=== PATIENT | female | born 1970 | race Caucasian/White ===

== ENCOUNTER → 2022-01-10 10:32 | Outpatient (CLI) | payer BC, SELFPAY ==
--- NOTE | ~2022-01-10 | MM_ITS ---
EXAMINATION: MM screening karen BI w lance HISTORY: Screening TECHNIQUE: Craniocaudal and mediolateral oblique 3-D tomosynthesis images were obtained and synthetic 2-D images were generated. CAD analysis was submitted and interpreted. COMPARISON: Comparison to multiple prior studies sequentially, with oldest reviewed study dated 09/13. BREAST PARENCHYMAL COMPOSITION: There are scattered areas of fibroglandular density. FINDINGS: There is no evidence of suspicious mass, calcification, or architectural distortion to sugg est malignancy in either breast. There has been no suspicious interval change. IMPRESSION: 1. No mammographic evidence of malignancy. 2. Recommend routine screening mammography in one year. BI-RADS Category 1: Negative Reviewed, dictated and finalized at location A.
== END ==
PROVIDERS: PCP Family Medicine; Visit Provider Obstetrics & Gynecology
DX: Z12.31 Encounter for screening mammogram for malignant neoplasm of breast (principal)
CPT/HCPCS: 77063; 77067

== ENCOUNTER 2022-09-01 10:30 | Emergency (ER) | payer BC, SELFPAY ==
[2022-09-01 10:53] VITALS: BP 125/71; PULSE 100; RESP 18; TEMP 36.6; O2SAT 97
--- NOTE | 2022-09-01 11:10 | ED.GENADULT ---
HPI - General Adult General Chief complaint: Ear Stated complaint: lt ear pain Time Seen by Provider: 09/01/22 11:10 Source: patient Mode of arrival: ambulatory Limitations: no limitations History of Present Illness HPI narrative: 51-year-old female patient presents to the [facility] with complaints of left ear pain x1 month. Patient states that she feels like her ear is goopy but denies any discharge coming from the ear. Denies fevers, body aches or chills. Denies any coughing, chest pain or shortness of breath. Related Data Home Medications Medication Instructions Recorded Confirmed albuterol sulfate 90 mcg/actuation 2 puff inhalation PRN PRN 09/01/22 09/01/22 aerosol inhaler Shortness Of Breath alprazolam 0.5 mg tablet 0.5 mg PO DAILY 09/01/22 09/01/22 bupropion HCl 300 mg 24 hr tablet, 300 mg PO DAILY 09/01/22 09/01/22 extended release buspirone 30 mg tablet 30 mg PO DAILY 09/01/22 09/01/22 diclofenac sodium 1 % topical gel 4 g topical QID 09/01/22 09/01/22 montelukast 10 mg tablet 10 mg PO DAILY 09/01/22 09/01/22 olmesartan 20 mg tablet 20 mg PO DAILY 09/01/22 09/01/22 simvastatin 10 mg tablet 10 mg PO DAILY 09/01/22 09/01/22 sumatriptan succinate 100 mg tablet 100 mg PO DAILY 09/01/22 09/01/22 tobramycin 0.3 %-dexamethasone 0.1 1 drp RIGHT EYE Q1-4H 09/01/22 09/01/22 % eye drops,suspension tranexamic acid 650 mg tablet 650 mg PO DAILY 09/01/22 09/01/22 Allergies Allergy/AdvReac Type Severity Reaction Status Date / Time No Known Allergies Allergy Unknown Verified 09/01/22 10:56 Review of Systems Review of Systems: CONSTITUTIONAL: Denies fever, chills, or sweats. EYES: Denies visual changes, redness, or discharge. ENT: Denies rhinorrhea, congestion, sore throat, Positive left otalgia. CARDIOVASCULAR: Denies chest pain, palpitations, or edema. RESPIRATORY: Denies cough or dyspnea. GASTROINTESTINAL: Denies abdominal pain, nausea, vomiting, or diarrhea. GENITOURINARY: Denies dysuria or hematuria. SKIN: Denies rash or itching. MUSCULOSKELETAL: Denies back pain, joint pain, or myalgia. NEUROLOGIC: Denies headache, numbness, or weakness. PSYCHIATRIC: Denies anxiety or depression. [facility] Past Medical History Medical History (Updated 09/01/22 @ 11:18 by NADEEM Driver) No significant past medical history Comments At the time of my signature I agree with nursing past medical history, surgical, social, and family history. There is no relevant family history pertinent to the presenting complaint. Exam Narrative: GENERAL: Well-appearing, well-nourished, and in no acute distress. HEAD: Normocephalic, atraumatic. EYES: PERRLA and EOMI. ENT: Nares clear, no rhinorrhea or epistaxis. Mucous membranes moist. left canal does have some swelling and erythema noted. No obvious discharge noted at this time. NECK: Supple. No lymphadenopathy CHEST: Clear to auscultation. No respiratory distress. HEART: Regular rate and rhythm. No murmur heard. Normal peripheral pulses. ABDOMEN: Soft, nontender, nondistended, normal active bowel sounds. EXTREMITIES: Normal range of motion. No edema. SKIN: Warm, dry, no rash. NEURO: No focal deficits. Alert and oriented x3. Course Course Level of Care: Express Care Visit Vital Signs Vital signs: Vital Signs Temperature 36.6 C 09/01/22 10:53 Pulse Rate 100 09/01/22 10:53 Respiratory Rate 18 09/01/22 10:53 Blood Pressure 125/71 09/01/22 10:53 Pulse Oximetry 97 09/01/22 10:53 Oxygen Delivery Room Air 09/01/22 10:53 Temperature 36.6 C 09/01/22 10:53 Pulse Rate 100 09/01/22 10:53 Respiratory Rate 18 09/01/22 10:53 Blood Pressure 125/71 09/01/22 10:53 Pulse Oximetry 97 09/01/22 10:53 Oxygen Delivery Room Air 09/01/22 10:53 Vital signs reviewed Medical Decision Making MDM Narrative Medical decision making narrative: Plan of care for patient to discharge home with antibiotic ear drops for infection to the left ear canal. P
== END 2022-09-01 11:17 | disposition home or self-care (01) ==
PROVIDERS: Emergency Provider Nurse Practitioner Family; PCP Family Medicine
DX: H60.92 Unspecified otitis externa, left ear (principal); E78.00 Pure hypercholesterolemia, unspecified; I10 Essential (primary) hypertension; F41.9 Anxiety disorder, unspecified; F32.A Depression, unspecified
CPT/HCPCS: 99213; G0463

== ENCOUNTER 2023-10-17 07:16 | Outpatient (CLI) | payer BC, SELFPAY ==
--- NOTE | ~2023-10-17 | MM_ITS ---
EXAMINATION: MM screening karen BI w lance HISTORY: Screening TECHNIQUE: Craniocaudal and mediolateral oblique 3-D tomosynthesis images were obtained and synthetic 2-D images were generated. CAD analysis was submitted and interpreted. COMPARISON: Comparison to multiple prior studies sequentially, with oldest reviewed study dated 01/2016. BREAST PARENCHYMAL COMPOSITION: FINDINGS: The right breast is stable without evidence for malignancy. There is a new focal asymmetry laterally in the left breast on CC view. IMPRESSION: 1. New left breast asymmetry laterally on CC view. 2. Additional mammographic views and possible breast ultrasound are recommended. BI-RADS Category 0: Incomplete: Needs additional imaging evaluation. Reviewed, dictated and finalized at location A. IMPRESSION: 1. New left breast asymmetry laterally on CC view. 2. Additional mammographic views and possible breast ultrasound are recommended . BI-RADS Category 0: Incomplete: Needs additional imaging evaluation.
== END 2023-10-17 07:17 ==
LOC: MICIMG 07:17
PROVIDERS: PCP Family Medicine; Visit Provider Obstetrics & Gynecology
DX: Z12.31 Encounter for screening mammogram for malignant neoplasm of breast (principal); R92.8 Other abnormal and inconclusive findings on diagnostic imaging of breast
CPT/HCPCS: 77063; 77067

== ENCOUNTER 2023-12-04 08:13 | Outpatient (CLI) | payer BC, SELFPAY ==
--- NOTE | ~2023-12-04 | MM_ITS ---
EXAMINATION: MM diagnostic karen LT w lance HISTORY: New left breast mammographic asymmetry noted laterally on craniocaudal view of October 16 TECHNIQUE: Additional 3-D tomosynthesis images of the left breast were performed and synthetic 2-D im ages were generated. CAD analysis was submitted and interpreted. COMPARISON: November 05, 2018, January 10, 2022, October 17, 2023 bilateral screening mammogram examinations FINDINGS: The area of concern noted laterally on the screening CC view of 10/17/2023 is no longer evid ent compression view with better compression of this area. The appearance is unchanged since October. IMPRESSION: 1. BI-RADS 1: Negative 2. Recommendation: Routine mammographic screening Reviewed, dictated and finalized at location A.
== END 2023-12-04 08:14 ==
LOC: MICIMG 08:15
PROVIDERS: PCP Family Medicine; Visit Provider Obstetrics & Gynecology
DX: R92.8 Other abnormal and inconclusive findings on diagnostic imaging of breast (principal); N64.89 Other specified disorders of breast
CPT/HCPCS: 77061; 77065; G0279

== ENCOUNTER 2025-02-21 18:34 | Emergency (ER) | payer BC, SELFPAY ==
--- OUTSIDE RECORDS SUMMARY | 2025-02-21 18:39 | XMS_ITS | Clinical Summary ---
Author Organization [facility] Address [address] [place] [address] Care Team Providers Care Supervisor Pressing Department Name Role Phone Unavailable Primary Care Provider Unavailabl e Immunizations Immunization Administration Dates Next Due Covid-19, Mrna, Lnp-s, PF, 5 0 mcg/0.25 mL dose (Moderna) 06/01/2021 Social History Tobacco Use Types Packs/Day Years Used Date Smoking Tobacco: Never Assessed Comments Unknown Sex and Gender Information Value Date Recorded Sex Assigned at Not on file Legal Sex Female 11:36 AM CDT Gender Identity Not on file Sexual Orientation Not on file Plan of Treatment Health Maintenance Due Date Last Done Comments Hepatitis C Virus (HCV) Screening 1970 TdaP Immunization 1970 Hepatitis B Immunization (1 of 3 - 19+ 3-dose series) 10/21/1990 Pap Smear 10/21/1992 Cervical Cancer Screening (CCS) 10/21/2001 HPV/Cotest 10/21/2001 Cologuard 10/21/2016 Colonoscopy 10/21/2016 Colorectal Cancer Screening 10/21/2016 Immunochemical Fecal Occult Blood 10/21/2016 Pneumococcal Immunization (5 0+ years) (1 of 1 - PCV) 10/21/2021 Zoster Immunization (1 of 2) 10/21/2021 SARS-COV-2 Immunization (3 - 2023- season) 2024 06/01/2021, 10/03/2020 Influenza Immunization (#1) 2025 Respiratory Syncytial Virus (RSV) Immunization (Adult) (1 - 1-dose 75+ series) 10/21/2046 Human Papillomavirus (HPV) Immunization Aged Out No longer eligible b ased on patient's age to complete this topic Meningococcal Immunization (ACWY) Aged Out No longer eligible b ased on patient's age to complete this topic Rotavirus Immunization Aged Out No lo nger eligible based on patient's age to complete this topic
--- OUTSIDE RECORDS SUMMARY | 2025-02-21 18:39 | XMS_ITS | Referral Summary ---
Author Organization [facility] Address [address] [place] [address] Care Team Providers Care Wine Merchant Name Role Phone Jessica Luna MD Primary Care Provider [phone] Allergies Active Allergy Reactions Criticality Noted Date Comments Amlodipine Edema Medium 09/27/2020 Lisinopril Cough Low 09/12/2020 Medications montelukast (SINGULAIR) 10 mg tabletIndications:Acute non-recurrent maxillary sinusitis TAKE 1 TABLET BY MOUTH EVERY DAY AT NIGHT 30 tablet 1 022 Active albuterol HFA (PROVENTIL HFA,VENTOLIN HFA,PROAIR HFA) 90 mcg/actuation inhaler USE 2 INHALATIONS EVERY 6 HOURS NEEDED FOR WHEEZING 25.5 g 3 022 Active SUMAtriptan (IMITREX) 100 mg tabletIndications:Intra ctable migraine with status migrainosus, unspecified migraine type TAKE 1 TABLET NEEDED FOR MIGRAINE 27 tablet 8 022 Active vxvaeyfjpg-ooyjyatz-xnr moterol (Breztri Aerosphere) 160-9-4.8 mcg/actuation inhalerIndications:Acut e bronchitis due to other specified organisms Inhale 2 puffs 2 (two) times a day 10.7 g 024 Active levonorgestreL (MIRENA) IUD 1 each by intrauterine route once 05/2024 Active semaglutide (WEGOVY) 2.4 mg/0.75 mL auto-injectorIndication s:Class 2 severe obesity due to excess calories with serious comorbidity and body mass index (BMI) of 38.0 to 38.9 in adult (HCC) Inject 2.4 mg under the skin every 7 days 2 mL 3 025 Active ALPRAZolam (XANAX) 0.5 mg tabletIndications:Gener alized Anxiety Disorder Take 1 tablet (0.5 mg total) by mouth daily as needed for anxiety 30 tablet 025 Active olmesartan (BENICAR) 20 mg tabletIndications:Hyper tension, essential TAKE 1 TABLET DAILY 90 tablet 3 025 Active simvastatin (ZOCOR) 10 mg tabletIndications:Pure hypercholesterolemia TAKE 1 TABLET NIGHTLY 100 tablet 1 025 Active busPIRone (BUSPAR) 30 mg tabletIndications:Gener alized anxiety disorder TAKE 1 TABLET TWICE A DAY 180 tablet 1 025 Active buPROPion XL (WELLBUTRIN XL) 300 mg 24 hr tabletIndications:Gener alized anxiety disorder TAKE 1 TABLET DAILY 90 tablet 1 025 Active Active Problems Problem Noted Date Diagnosed Date Metabolic syndrome 04/22/2024 Assessment & Plan (05/27/2024 7:24 PM CDT): BMI Follow-up includes: nutrition counseling Start wegovy. Assessment & Plan (04/30/2024 10:18 AM CDT): Chronic Uncontrolled Start wegovy Acute bronchitis due to other specified organism s 10/16/2023 Obesity (BMI 30-39.9) 10/16/2023 Assessment & Plan (05/27/2024 7:25 PM CDT): BMI Follow-up includes: nutrition counseling Start wegovy. Assessment & Plan (04/30/2024 10:18 AM CDT): BMI Follow-up includes: nutrition counseling and exercise counseling Start jim. Neck pain 10/16/2023 Acute pain of left knee 05/30/2022 Subcutaneous mass of right upper extremity 03/27 Assessment & Plan (04/02/2022 6:32 AM CDT): New Refer to general surgeon Screening for colon cancer 11/01/2021 Acute non-recurrent maxillary sinusitis 11/02/19 22 Assessment & Plan (11/18/2021 10:40 AM CDT): New Order angelica stallworth Encounter for screening mamm ogram for malignant neoplasm of breast 03/29/2021 Class 2 severe obesity due t o excess calories with serious comorbidity and body mass index (BMI) of 38.0 to 38.9 in adult 11/29/2020 Assessment & Plan (03/29/2021 5:10 AM CDT): Stable Cont phentermine Assessment & Plan (01/01/2021 4:36 AM CDT): Improving Cont phentermine Assessment & Plan (11/29/2020 10:41 AM CDT): BMI Follow-up includes: nutrition counseling and exercise counseling Start phentermine . Bilateral lower extremity edema 09/27/2020 Assessment & Plan (09/27/2020 1:46 PM [employer]): Secondary to amlodipine Dc it and start hctz for few days to reduce swellig Left carpal tunnel syndrome 09/12/2020 Assessment & Plan (09/12/2020 3:25 PM [employer]): New Refer to ortho Uncontrolled hypertension 07/24/2020 Assessment & Plan (09/27/2020 1:45 PM [employer]): Uncontrolled since stopped the norvasc, because it has caused lower extremity edema Start edarbyclor Assessment & Plan (09/12/2020 3:25 PM [employer]): New Stopped the zestoretic because of cough Start amlodipine Assessment & Plan (07/31/2020 5:43 AM [employer]): Uncontrolled Change lisinopril to zestoretic Numbness and tingling in left hand 07/24/2020 Assessment & Plan (07/31/2020 5:42 AM [employer]): New Order EMG/NCS Pure hypercholesterolemia 02/19/2020 Assessment & Plan (05/27/2024 7:26 PM CDT): Chronic Stable Cont zocor Goal: TC<200, LDL<100, TG<150 Assessment & Plan (04/30/2024 10:18 AM CDT): Chronic Stable Cont zocor Goal: TC<200, LDL<100, TG<150 Assessment & Plan (10/16/2023 11:42 AM CDT): Increase zocor from 1/2 tab to 1 tab daily Assessment & Plan (05/01/2023 10:23 AM CDT): Chronic Stable Cont zocor Goal: TC<200, LDL<100, TG<150 Assessment & Plan (10/03/2022 8:59 AM [employer]): Slightly worsened Restart the fish oil and coq10 Cont zocor Goal: TC<200, LDL<100, TG<150 Assessment & Plan (04/02/2022 6:31 AM CDT): Uncontrolled Follow low chol diet Goal : TC<200, LDL<100 Assessment & Plan (11/18/2021 10:40 AM CDT): Uncontrolled Follow low chol diet Goal : TC<200, LDL<100 Assessment & Plan (03/29/2021 5:10 AM CDT): Uncontrolled Follow low chol diet Goal : TC<200, LDL<100 Assessment & Plan (10/25/2020 8:54 AM CDT): Uncontrolled Work on low choelsterol diet Assessment & Plan (07/31/2020 5:43 AM [employer]): Uncontrolled Follow low cholesterol diet Assessment & Plan (02/21/2020 8:41 AM CDT): New Start low cholesterol diet Recommended to start omega-3 Reactive airway disease 07/26/2019 Assessment & Plan (01/21/2020 4:35 AM CDT): Stable Cont proair PRN Assessment & Plan (08/31/2019 12:11 PM [employer]): Stable Cont proair PRN Generalized anxiety disorder 07/26/2019 Assessment & Plan (04/30/2024 10:17 AM CDT): Chronic Is Stable Cont buspar, wellbutrin, xanax Assessment & Plan (05/01/2023 10:24 AM CDT): Chronic Stable Cont buspar, wellbutrin, xanax Assessment & Plan (04/02/2022 6:32 AM CDT): Stable Cont xanax prn, wellbutrin, buspirone Assessment & Plan (11/18/2021 10:40 AM CDT): Stable Cont xanax prn, wellbutrin, buspirone Assessment & Plan (03/29/2021 5:11 AM CDT): Stable Cont xanax prn, wellbutrin, buspirone Assessment & Plan (01/01/2021 4:36 AM CDT): Stable Cont xanax prn Assessment & Plan (10/25/2020 8:54 AM CDT): Stable Cont buspar, wellbutrin Assessment & Plan (07/31/2020 5:43 AM [employer]): Stable Cont buspirone, xanax Assessment & Plan (02/21/2020 8:40 AM CDT): Stable Cont buspirone, xanax Assessment & Plan (01/21/2020 4:34 AM CDT): Stable Cont buspirone, xanax Assessment & Plan (08/31/2019 12:11 PM [employer]): Stable Cont wellbutrin, buspirone Intractable migraine with status migrainosus Assessment & Plan (04/30/2024 10:18 AM CDT): Chronic Is Stable Cont imitrex prn Assessment & Plan (05/01/2023 10:23 AM CDT): Chronic Stable Cont imitrex prn Assessment & Plan (04/02/2022 6:32 AM CDT): Stable Cont imitrex PRN Assessment & Plan (11/18/2021 10:41 AM CDT): Stable Cont imitrex PRN Assessment & Plan (09/12/2020 3:24 PM [employer]): Stable Cont imitrex prn Assessment & Plan (01/21/2020 4:35 AM CDT): Stable Cont imitrex prn Assessment & Plan (08/31/2019 12:11 PM [employer]): Stable Cont imitrex prn Hypertension, essential 07/26/2019 Assessment & Plan (04/30/2024 10:18 AM CDT): Chronic Is stable Cont benicar Goal: SBP<140, DBP<90 Assessment & Plan (05/01/2023 10:23 AM CDT): Chronic Stable Cont benicar Goal: SBP<140, DBP<90 Assessment & Plan (04/02/2022 6:31 AM CDT): Stable Cont benicar Goal: SBP<140, DBP<90 Assessment & Plan (11/18/2021 10:39 AM CDT): Stable Cont benicar Goal: SBP<140, DBP<90 Assessment & Plan (03/29/2021 5:10 AM CDT): Stable Cont benicar Assessment & Plan (01/01/2021 4:37 AM CDT): Stable Cont benicar Assessment & Plan (11/29/2020 10:41 AM CDT): Stable Cont benicar Assessment & Plan (11/07/2020 3:06 PM CDT): Has become hypotensive with edarbyclor 40/12.5 mg daily Because of problems with insurance coverage of edarbyclor, she would like to change to benicar 20mg daily Has already had side effects to : amlodipine, lisinopril Assessment & Plan (10/25/2020 8:54 AM CDT): Improved Cont edarbyclor Assessment & Plan (09/08/2020 2:10 PM [employer]): Better Cont zestoretic Assessment & Plan (02/21/2020 8:40 AM CDT): Improved Cont lisinopril Assessment & Plan (01/21/2020 4:35 AM CDT): Uncontrolled Start lisinopril Assessment & Plan (08/31/2019 12:11 PM [employer]): Monitor BP Immunizations Immunization Administration Dates Next Due Influenza, Unspecified 04/27/2023(Deferr ed: Patient Refused),05/30/2022(Deferred: Patient Refused),04/27/2021(Deferred: Patient Refused),05/16/2020(Deferred: Patient Refused),07/26/2019(Deferred: Patient Refused) Sentrinsic (J&J) SARS-CoV-2 Vaccination 08/16/2021, 10/03/2020 Social History Tobacco Use Types Packs/Day Years Used Date Smoking Tobacco: Never Cigarettes Smokeless Tobacco: Never Alcohol Use Standard Drinks/Week Comments Yes 0 (1 standard drink = 0.6 oz pur e alcohol) occ AUDIT-C Answer Date Recorded Q1: How often do you have a drink containing alc ohol? Monthly or less 11/04/2024 Q2: How many drinks containi ng alcohol do you have on a typical day when you are drinking? 1 or 2 11/04/2024 Frequency of Binge Drinking Not on file 10/26 PHQ-2 Answer Date Recorded PHQ-2 Total Score (If total score is 3 or more points, staff should administer the PHQ-9) 0 11/04/2024 Comments No Sex and Gender Information Value Date Recorded Sex Assigned at Not on file Legal Sex Female 8:25 PM [employer] Gender Identity Female 06/25/2020 8:20 PM [employer] Sexual Orientation Not on file Last Filed Vital Signs Vital Sign Reading Time Taken Comments Blood Pressure 128/82 11/04/2024 9:32 AM CDT Pulse 80 11/04/2024 9:32 AM CDT Temperature 36.8 C (98.3 F) 11/04/2024 9:32 AM CDT Respiratory Rate 18 11/04/2024 9:32 AM CDT Oxygen Saturation 99% 11/04/2024 9:32 AM CDT Inhaled Oxygen Concentration - - Weight 78.7 kg (173 lb 9.6 oz) 11/04/2024 9:32 A M CDT Height 154.9 cm (5' 1) 11/04/2024 9:32 AM CDT Body Mass Index 32.8 11/04/2024 9:32 AM CDT Plan of Treatment Not on file Procedures Procedure Name Priority Date/Time Associated Diagnosis Comments SCREENING MAMMOGRAM BILATERAL W DINO Schedule Routine, Read Routine (OP Routine) 01/10/2022 STOOL DNA COLOGUARD Routine 12/27/2021 1:27 PM CDT Screening for colon cancer THINPREP PAP WITH HPV Routine 08/01/2021 10:41 AM [employer] from Last 3 Months or Most Recently Relevant to Health Maintenance Results * Screening Mammogram Bilateral W Dino (01/10/2022) Anatomical Region Laterality Modality Breast Bilateral Mammography 01/10/2022 Impressions 01/10/2022 Mammogram Result Scanned Into Media us Historical Provider MD CHOW MAMMO PROCEDURES Annette l Result * Stool DNA - Cologuard (12/27/2021 1:27 PM CDT) Stool DNA - Cologuard Negative Negative [employer] (CLIA #:[id number]) Comment: NEGATIVE TEST RESULT. A negative Cologuard result indicates a low likelihood that a colorectal cancer (CRC) or advanced adenoma (adenomatous polyps with more advanced pre-malignant features) is present. The chance that a person with a negative Cologuard test has a colorectal cancer is less than 1 in 1500 (negative predictive value >99.9%) or has an advanced adenoma is less than 5.3% (negative predictive value 94.7%). These data are based on a prospective cross-sectional study of 10,000 individuals at average risk for colorectal cancer who were screened with both Cologuard and colonoscopy. (Kay Araiza. et al, N Engl J Med 2014;370(14):5724-7193) The normal value (reference range) for this assay is negative. COLOGUARD RE-SCREENING RECOMMENDATION: Periodic colorectal cancer screening is an important part of preventive healthcare for asymptomatic individuals at average risk for colorectal cancer. Following a negative Cologuard result, the [place] [employer] and U.S. Multi-Society Task Force screening guidelines recommend a Cologuard re-screening interval of 3 years. References: [place] [employer] Guideline for Colorectal Cancer Screening: https://www.cancer.org/cancer/tfjqg-ezslfu-pgfkwt/ibvifrmfv-wubuubaww-pgpoawk/ac s-rec ommendations.html.; Dwayne ORTEGA, Lucinda RESENDEZ, Zain FALCON, Colorectal Cancer Screening: Recommendations for Physicians and Patients from the U.S. Multi-Society Task Force on Colorectal Cancer Screening , Am J Gastroenterology 2017; 112:3603-6757. TEST DESCRIPTION: Composite algorithmic analysis of stool DNA-biomarkers with hemoglobin immunoassay. Quantitative values of individual biomarkers are not reportable and are not associated with individual biomarker result reference ranges. Cologuard is intended for colorectal cancer screening of adults of either sex, 45 years or older, who are at average-risk for colorectal cancer (CRC). Cologuard has been approved for use by the U.S. FDA. The performance of Cologuard was established in a cross sectional study of average-risk adults aged 50-84. Cologuard performance in patients ages 45 to 49 years was estimated by sub-group analysis of near-age groups. Colonoscopies performed for a positive result may find as the most clinically significant lesion: colorectal cancer [4.0%], advanced adenoma (including sessile serrated polyps greater than or equal to 1cm diameter) [20%] or non- advanced adenoma [31%]; or no colorectal neoplasia [45%]. These estimates are derived from a prospective cross-sectional screening study of 10,000 individuals at average risk for colorectal cancer who were screened with both Cologuard and colonoscopy. (Kay Good et al, N Engl J Med 2014;370(14):1138-2713.) Cologuard may produce a false negative or false positive result (no colorectal cancer or precancerous polyp present at colonoscopy follow up). A negative Cologuard test result does not guarantee the absence of CRC or advanced adenoma (pre-cancer). The current Cologuard screening interval is every 3 years. ([place] [employer] and U.S. Multi-Society Task Force). Cologuard performance data in a 10,000 patient pivotal study using colonoscopy as the reference method can be accessed at the following location: www.[employer]/results. Additional description of the Cologuard test process, warnings and precautions can be found at [email or web address].[email or web address]. Stool 12/27/2021 1:27 PM CDT 12/28/2021 6:29 PM CDT us Jessica Luna MD LAB BODY FLUIDS AND STOOL S ORDERABLES Final Result [facility] (CLIA #:[id number]) [address] [place] [address] * ThinPrep Pap with HPV (08/01/2021 10:41 AM [employer]) Pap test 08/01/2021 10:4 1 AM [employer] 08/02/2021 10:41 AM [employer] Narrative 08/06/2021 2:36 PM [employer] [facility] Department of Pathology [address] [place] [address] Final Report with Addendum Note to Patients: This report may contain a detailed description of human tissue sent by a health care provider to the laboratory for pathologic evaluation. The content of this report is essential for diagnosis and may provide important critical findings. This information may be unfamiliar to patients to review without a medical professional present. It is advised that the patient review this report in the presence of a health care provider who can answer questions and explain the details. Patient Name: JUANIS CAMPBELL Address: [address] [place] [address] [place] [address] Gender: F : 1970 (Age: 50) Service: Laboratory Location: [facility] #: [id number] Patient Type: [facility] SPECIMEN Taken: 08/01/2021 Received: 08/02/2021 Accessioned:: 08/03/2021 Reported: 08/06/2021 Physician(s): Damien Ramos M.D. [facility] Diagnosis: Source of Specimen: Imaged Thinprep Pap Test plus HPV - Cuff Presser Cytologic Material Specimen Adequacy: - Satisfactory for evaluation; endocervical/transformation zone component present General Category: - Negative for intraepithelial lesion or malignancy Interpretation/Results: - Numerous RBC's TRISHA Richards(ASCP) Report Electronically Reviewed and Signed Out By SAVANAH RichardsASCP) 08/06/2021 14:36:46 Addenda: HPV Test Interpretation NEGATIVE for types 16, 18, 31, 33, 35, 39, 45, 51, 52, 56, 58, 59, 66 and 68. Test performed utilizing Gen-Probe Aptima assay. TRISHA Ricahrds(ASCP) Report Electronically Reviewed and Signed Out By TRISHA Richards(ASCP) 08/03/2021 14:18:01 Specimen(s) Received: A: Imaged Thinprep Pap Test plus HPV - Cuff Presser Cytologic Material Clinical History: Last Menstrual Period: 07/11/21 Menstrual History: Clinical History: WWE The Pap test is a screening test used to aid in the detection of cervical cancer and its precursors. It should not be the sole means by which malignant and premalignant lesions are diagnosed. Both false negative and false positive results may occur. It also has poor sensitivity for the detection of endometrial lesions and should not be used to evaluate suspected endometrial abnormalities. For these reasons it is most important to obtain Pap tests at regular intervals. The performance characteristics of some immunohistochemical stains, fluorescence in-situ hybridization tests and immunophenotyping by flow cytometry cited in this report (if any) were determined by the Surgical Pathology Department at [facility] as part of an ongoing quality supervisor program and in compliance with federally mandated regulations drawn from the Clinical Laboratory Improvement Act of 1988 (CLIA '88). Some of these tests rely on the use of analyte specific reagents and are subject to specific labeling requirements by the US Food and Drug Administration. Such diagnostic tests may only be performed in a facility that is certified by the Department of Health and Human Services as a high complexity laboratory under CLIA '88. The FDA has determined that such clearance or approval is not necessary. This test is used for clinical purposes. It should not be regarded as investigational or for research. Nevertheless, federal rules concerning the medical use of analyte specific reagents require that the following disclaimer be attached to the report: This test was developed and its performance characteristics determined by the Surgical Pathology Department [facility]. It has not been cleared or approved by the U. S. Food and Drug Administration. Damien Ramos MD LAB CYTOLOGY ORDERABLES Final Result from Last 3 Months or Most Recently Relevant to Health Maintenance Insurance [employer] Care Teams Wine Merchant Relationship Specialty Start Date End Date Jessica Luna MD PCP - General Family Medicine 07/05/19
--- OUTSIDE RECORDS SUMMARY | 2025-02-21 18:39 | XMS_ITS | Clinical Summary ---
Author Organization [facility] at the [facility] Address [address] [place] [address] Care Team Providers Care Greens Or Grounds Superintendent Name Role Phone Jessica Luna MD Primary Care Provider [phone] Allergies Active Allergy Reactions Criticality Noted Date [...] FOR MIGRAINE 27 tablet 8 022 Active qpzqckyfnq-aezqjsqu-zbs moterol (Breztri Aerosphere) 160-9-4.8 mcg/actuation inhalerIndications:Acut e [...] 09/27/2020 Assessment & Plan (09/27/2020 1:46 PM FIELD WORKER): Secondary to amlodipine Dc it and start hctz for few days to reduce swellig Left carpal tunnel syndrome 09/12/2020 Assessment & Plan (09/12/2020 3:25 PM FIELD WORKER): New Refer to ortho Uncontrolled hypertension 07/24/2020 Assessment & Plan (09/27/2020 1:45 PM FIELD WORKER): Uncontrolled since stopped the norvasc, because it has caused lower extremity edema Start edarbyclor Assessment & Plan (09/12/2020 3:25 PM FIELD WORKER): New Stopped the zestoretic because of cough Start amlodipine Assessment & Plan (07/31/2020 5:43 AM FIELD WORKER): Uncontrolled Change lisinopril to zestoretic Numbness and tingling in left hand 07/24/2020 Assessment & Plan (07/31/2020 5:42 AM FIELD WORKER): New Order EMG/NCS Pure hypercholesterolemia 02/19/2020 Assessment [...] TG<150 Assessment & Plan (10/03/2022 8:59 AM FIELD WORKER): Slightly worsened Restart the fish oil and [...] diet Assessment & Plan (07/31/2020 5:43 AM FIELD WORKER): Uncontrolled Follow low cholesterol diet Assessment & Plan (02/21/2020 8:41 AM CDT): New Start low cholesterol diet Recommended to start omega-3 Reactive airway disease 07/26/2019 Assessment & Plan (01/21/2020 4:35 AM CDT): Stable Cont proair PRN Assessment & Plan (08/31/2019 12:11 PM FIELD WORKER): Stable Cont proair PRN Generalized anxiety disorder [...] wellbutrin Assessment & Plan (07/31/2020 5:43 AM FIELD WORKER): Stable Cont buspirone, xanax Assessment & Plan (02/21/2020 8:40 AM CDT): Stable Cont buspirone, xanax Assessment & Plan (01/21/2020 4:34 AM CDT): Stable Cont buspirone, xanax Assessment & Plan (08/31/2019 12:11 PM FIELD WORKER): Stable Cont wellbutrin, buspirone Intractable migraine with status migrainosus Assessment & Plan (04/30/2024 10:18 AM CDT): Chronic Is Stable Cont imitrex prn Assessment & Plan (05/01/2023 10:23 AM CDT): Chronic Stable Cont imitrex prn Assessment & Plan (04/02/2022 6:32 AM CDT): Stable Cont imitrex PRN Assessment & Plan (11/18/2021 10:41 AM CDT): Stable Cont imitrex PRN Assessment & Plan (09/12/2020 3:24 PM FIELD WORKER): Stable Cont imitrex prn Assessment & Plan (01/21/2020 4:35 AM CDT): Stable Cont imitrex prn Assessment & Plan (08/31/2019 12:11 PM FIELD WORKER): Stable Cont imitrex prn Hypertension, essential 07/26/2019 [...] edarbyclor Assessment & Plan (09/08/2020 2:10 PM FIELD WORKER): Better Cont zestoretic Assessment & Plan (02/21/2020 8:40 AM CDT): Improved Cont lisinopril Assessment & Plan (01/21/2020 4:35 AM CDT): Uncontrolled Start lisinopril Assessment & Plan (08/31/2019 12:11 PM FIELD WORKER): Monitor BP Immunizations Immunization Administration Dates Next Due Influenza, Unspecified 04/27/2023(Deferr ed: Patient Refused),05/30/2022(Deferred: Patient Refused),04/27/2021(Deferred: Patient Refused),05/16/2020(Deferred: Patient Refused),07/26/2019(Deferred: Patient Refused) Genapsys (J&J) SARS-CoV-2 Vaccination 08/16/2021, 10/03/2020 Surgical History Surgery Date Site/Laterality Comments SECTION x2 CARPAL TUNNEL RELEASE 10/26/2020 Left CARPAL TUNNEL RELEASE 10/26/2020 Left LASIK Remove floater Medical History Medical History Date Comments Anxiety Hypertension Arthritis Asthma Depression Migraines menorrhagia Fibroid uterus Family History Medical History Relation Name Comments Cancer Father Royce Leukemia Father Royce Cancer Mother Earlene Uterine cancer Mother Earlene Heart attack Mother's Brother 1 Karson Heart attack Mother's Brother 2 Karson Allergy (severe) Son 1 Radha Asthma Son 1 Radha Nephrolithiasis Son 1 Radha defects Son 2 Macho Breast cancer Neg Hx Ovarian cancer Neg Hx Relation Name Status Comments Father Royce Mother Earlene Alive Mother's Brother 1 Karson Mother's Brother 2 Karson Alive Son 1 Radha Alive Son 2 Macho Alive Social History Tobacco Use Types Packs/Day Years [...] on file Legal Sex Female 8:25 PM FIELD WORKER Gender Identity Female 06/25/2020 8:20 PM FIELD WORKER Sexual Orientation Not on file Obstetrics History Para Term AB IAB SAB Ectopic Multiple Livin g Live Births 2 2 2 0 0 0 0 0 0 2 2 Date Outcome GA Total Labor Labor/2nd/3rd Weight Sex Type Anes PTL Vanessa A1 A5 Name Clin Term Term Comments Last Filed Vital Signs Vital Sign Reading [...] 11/04/2024 9:32 AM CDT Plan of Treatment Health Maintenance Due Date Last Done Comments Hepatitis C Screening 1970 DTaP/Tdap/Td Vaccine (1 - Tdap) 10/21/1982 Hepatitis B Screening 10/21/1989 Zoster Vaccine (1 of 2) 10/21/2021 Cervical Cancer Screening 08/01/2022 08/01/2021 Covid-19 Vaccine ( season) 2024 08/16/2021, 06/08/2021, 06/01/2021, Additional history exists Breast Cancer Screening-Mammogram 12/03/2024 12/04/2023, 01/10/2022 Colon Cancer Screening-DNA Stool 12/27/2024 12/27/2021 Depression Screening 11/04/2025 11/04/2024, 10/16/2023, 05/30/2022, Additional history exists Regular Well Visit/Exam 18-64 11/04/2025 11/04/2024, 12/10/2022, 08/01/2021 Influenza Vaccine Discontinued Pneumococcal vaccine <65 Aged Out No longer eligible based on patient's age to complete this topic Procedures Procedure Name Priority Date/Time Associated Diagnosis Comments SCREENING MAMMOGRAM BILATERAL W DINO Schedule Routine, Read Routine (OP Routine) 01/10/2022 STOOL DNA COLOGUARD Routine 12/27/2021 1:27 PM CDT Screening for colon cancer THINPREP PAP WITH HPV Routine 08/01/2021 10:41 AM FIELD WORKER from Last 3 Months or Most Recently Relevant to Health Maintenance Results * Screening Mammogram Bilateral W Dino (01/10/2022) Anatomical Region Laterality Modality Breast Bilateral Mammography 01/10/2022 Impressions 01/10/2022 Mammogram Result Scanned Into Media us Historical Provider MD CHOW MAMMO PROCEDURES Annette l Result * Stool DNA - Cologuard (12/27/2021 1:27 PM CDT) Stool DNA - Cologuard Negative Negative [facility] (CLIA #:[id number]) Comment: NEGATIVE TEST RESULT. A negative Cologuard [...] Araiza. et al, N Engl J Med 2014;370(14):9027-2906) The normal value (reference range) for this assay is negative. COLOGUARD RE-SCREENING RECOMMENDATION: Periodic colorectal cancer screening is an important part of preventive healthcare for asymptomatic individuals at average risk for colorectal cancer. Following a negative Cologuard result, the [place] Cancer Society and U.S. Multi-Society Task Force screening guidelines recommend a Cologuard re-screening interval of 3 years. References: [place] [employer] Guideline for Colorectal Cancer Screening: https://www.cancer.org/cancer/xveoo-kdwepe-pihzqr/tkxyqwiew-lowkzltce-ypccfor/ac s-rec ommendations.html.; Dwayne DK, Lucinda CR, Zain ChristensenK, Colorectal Cancer Screening: Recommendations for Physicians and Patients from the U.S. Multi-Society Task Force on Colorectal Cancer Screening , Am J Gastroenterology 2017; 112:1296-6494. TEST DESCRIPTION: Composite algorithmic analysis of stool [...] Good et al, N Engl J Med 2014;370(14):0840-2200.) Cologuard may produce a false negative or false positive result (no colorectal cancer or precancerous polyp present at colonoscopy follow up). A negative Cologuard test result does not guarantee the absence of CRC or advanced adenoma (pre-cancer). The current Cologuard screening interval is every 3 years. ([place] Cancer Society and U.S. Multi-Society Task Force). Cologuard performance data in a 10,000 patient pivotal study using colonoscopy as the reference method can be accessed at the following location: www.[employer]/results. Additional description of the Cologuard test process, warnings and precautions can be found at www.[employer].com. Stool 12/27/2021 1:27 PM CDT 12/28/2021 6:29 PM CDT Jessica Luna MD LAB BODY FLUIDS AND STOOL S ORDERABLES Final Result [facility] (CLIA #:[id number]) [address] [place] [address] * ThinPrep Pap with HPV (08/01/2021 10:41 AM FIELD WORKER) Pap test 08/01/2021 10:4 1 AM FIELD WORKER 08/02/2021 10:41 AM FIELD WORKER Narrative 08/06/2021 2:36 PM FIELD WORKER [facility] Department of Pathology [address] [place] [address] Final Report with Addendum Note to Patients: [...] the details. Patient Name: JUANIS CAMPBELL Address: [address] [place] [address] Gender: F : 1970 (Age: 50) Service: Laboratory Location: N : [id number] [facility] #: [id number] Patient Type: [facility] SPECIMEN Taken: 08/01/2021 Received: 08/02/2021 Accessioned:: 08/03/2021 Reported: 08/06/2021 Physician(s): Damien Ramos M.D. [facility] Diagnosis: Source of Specimen: Imaged Thinprep Pap Test plus HPV - Custom Home Installer Cytologic Material Specimen Adequacy: - Satisfactory for evaluation; endocervical/transformation zone component present General Category: - Negative for intraepithelial lesion or malignancy Interpretation/Results: - Numerous RBC's TRISHA Richards(ASCP) Report Electronically Reviewed and Signed Out By TRISHA Richards(ASCP) 08/06/2021 14:36:46 Addenda: HPV Test Interpretation NEGATIVE for types 16, 18, 31, 33, 35, 39, 45, 51, 52, 56, 58, 59, 66 and 68. Test performed utilizing Gen-Probe Aptima assay. TRISHA Richards(ASCP) Report Electronically Reviewed and Signed Out By TRISHA Richards(ASCP) 08/03/2021 14:18:01 Specimen(s) Received: A: Imaged Thinprep Pap Test plus HPV - Custom Home Installer Cytologic Material Clinical History: Last Menstrual Period: [...] determined by the Surgical Pathology Department at [facility] as part of an ongoing rn clinical quality program and in compliance with federally mandated [...] characteristics determined by the Surgical Pathology Department [facility]. It has not been cleared or approved by the U. S. Food and Drug Administration. Damien Ramos MD LAB CYTOLOGY ORDERABLES Final Result from Last 3 Months or Most Recently Relevant to Health Maintenance Insurance Liquid OOS Care Teams Greens Or Grounds Superintendent Relationship Specialty Start Date End Date Jessica Luna MD PCP - General Family Medicine 07/05/19
--- OUTSIDE RECORDS SUMMARY | 2025-02-21 18:39 | XMS_ITS | Continuity of Care Document ---
Author Organization [facility] Address [address] [place] [address] Phone Care Team Providers Care Assembler Flexible Leads Name Role Phone Carrillo Kenyon Unavailable Unavailable Procedures Procedure Date Therapeutic Activities Neuromuscular Re-Ed Therapeutic Exercise Hot or Cold Pack Therapeutic Activities Neuromuscular Re-Ed Therapeutic Exercise Hot or Cold Pack Therapeutic Activities Neuromuscular Re-Ed Therapeutic Exercise Therapeutic Activities Neuromuscular Re-Ed Therapeutic Exercise Hot or Cold Pack Electrical Stimulation Therapeutic Activities Neuromuscular Re-Ed Therapeutic Exercise Hot or Cold Pack Electrical Stimulation Therapeutic Activities Neuromuscular Re-Ed Therapeutic Exercise Hot or Cold Pack Therapeutic Activities Neuromuscular Re-Ed Therapeutic Exercise Hot or Cold Pack Therapeutic Activities Neuromuscular Re-Ed Therapeutic Exercise Hot or Cold Pack Therapeutic Activities Neuromuscular Re-Ed Therapeutic Exercise Therapeutic Activities Neuromuscular Re-Ed Therapeutic Exercise PT Evaluation Moderate Complexity Therapeutic Exercise Neuromuscular Re-Ed Advance Directives Directive Yes / No Effective Date File Name No Information Encounters Encounter Description Practice Location Reason(s) For Visit Diagnoses Date Provider Providers Copied on Encounter [facility] [address], [id number], tel:[phone] [place] No Information 6 3 Muehl Carrillo. [address] [facility], [facility] [address] [place] [address], . tel: [phone] [facility] [address] [place] [address], [id number], tel:[phone] [place] No Information 3 Muehl Carrillo. [address] [place] [address], [facility] [address] [place] [address], . tel: [phone] Referring Provider: Jessica Brown, [address] [place] [address] [place] [address], [address]. tel:[phone], [id number], tel:[phone] [place] No Information 2 Muehl Carrillo. [address] [place] [address], [facility] [address], [place], [facility], . tel: [phone] Referring Provider: Jessica Brown, [address] [place] [address] [place] [address], [address]. tel:[phone], [id number], tel:[phone] [place] No Information 0- 2 Muehl Carrillo. [address] [place] [address], [facility] [address], [place], [facility], . tel: [phone] Referring Provider: Jessica Brown, [address] [place] [address] [address], [place], [address]. tel:[phone], [id number], tel:[phone] [place] No Information Dec-1 5-202 2 Muehl Carrillo. [address] [place] [address], [address], [place], [facility], . tel: [phone] Referring Provider: Jessica Brown, [address] [place] [address] [address], [place], [address]. tel:[phone], [id number], tel:[phone] [place] No Information Dec-1 3-202 2 Muehl Carrillo. [address] [place] [address], [facility] [address], [place], [facility], . tel: [phone] Referring Provider: Jessica Brown, [address] [place] [address] [address], [place], [address]. tel:[phone], [id number], tel:[phone] [place] No Information Dec-0 8-202 2 Muehl Carrillo. [address] [place] [address], [address], [place], [facility], . tel: [phone] Referring Provider: Jessica Brown, [address] [place] [address] [address], [place], [address]. tel:[phone], [id number], tel:[phone] [place] No Information Dec-0 6-202 2 Muehl Carrillo. [address] [place] [address], [address], [place], [facility], . tel: [phone] Referring Provider: Jessica Brown, [address] [place] [address] [address], [place], [address]. tel:[phone], [id number], tel:[phone] [place] No Information 2 Muehl Carrillo. [address] [place] [address], [facility] [address], [place], [facility], . tel: [phone] Referring Provider: Jessica Brown, [address] [place] [address] [address], [place], [address]. tel:[phone], [id number], tel:[phone] [place] No Information 2 Muehl Carrillo. [address] [place] [address], [facility] [address], [place], [facility], . tel: [phone] Referring Provider: Jessica Brown, [address] [place] [address] [place] [address], [address]. tel:[phone], [id number], tel:[phone] [place] No Information 2 Muehl Carrillo. [address] [place] [address], [address], [place], [facility], . tel: [phone] Referring Provider: Jessica Brown, [address] [place] [address] [address], [place], [address]. tel:[phone], [id number], tel:[phone] [place] No Information 2 Muehl Carrillo. [address] [place] [address], [address], [place], [facility], . tel: [phone] Referring Provider: Jessica Brown, [address] [place] [address] [address], [place], [address]. tel:[phone] Family History Family Member Type Diagnosis Age At Onset No Information Payers Payer name Insurance type Covered republican ID Authoramor lopez(s) [facility] [id number] Social History Type Description Quantity Date Captured Comments Sex Female Smoking Status No Information Chief Complaint And Reason For Visit No Information Reason For Referral Reason For Referral No Information History Of Present Illness Encounter Date Complaint History Of Prese nt Illness No Information Functional Status Date Functional Assessmen t No Information Instructions Date Instruction Additional Infor mation Prescribed activity/exercise edu cation Related to Overweight Dietary needs education Related to Overweight Assessments Type Assessment Date No Information Patient Care Teams Name Effective Dates (start - stop) Status Members No Information
--- OUTSIDE RECORDS SUMMARY | 2025-02-21 18:39 | XMS_ITS | Clinical Summary ---
Author Organization [facility] Address [facility] [place] [address] Care Team Providers Care Waiver Analyst Name Role Phone Unavailable Primary Care Provider Unavailabl e Social History Tobacco Use Types Packs/Day Years Used Date Smoking Tobacco: Never Assessed Comments Unknown Sex and Gender Information Value Date Recorded Sex Assigned at Not on file Legal Sex Female 5:57 PM CDT Gender Identity Not on file Sexual Orientation Not on file Plan of Treatment Health Maintenance Due Date Last Done Comments Colorectal Cancer Screening Colonoscopy (10 Years) 1970 Annual Physical 10/21/1974 Hepatitis C 10/21/1989 DTaP, Tdap and Td Vaccines (1 - Tdap) 10/21/1990 Hepatitis B Vaccines (1 of 3 - 19+ 3-dose series) 10/21/1990 Mammogram Screening 11/05/2020 11/05/2018, 02/29/2016, 02/01/2016, Additional history exists Pneumococcal Vaccine: 50+ Years (1 of 1 - PCV) 10/21/2021 Zoster Vaccines (1 of 2) 10/21/2021 Cervical Cancer Screening Pap with HPV Testing (Age 30 to 64) Every 5 Years 03/17/2022 03/17/2017, 01/01/2016, 09/15/2014 Cervical Cancer Screening Pap Smear (Age 30 to 64) Every 3 Years 09/19/2022 09/19/2019, 06/10/2013, 02/07/2011, Additional history exists Cervical Cancer Screening with HPV 09/19/2022 COVID-19 Vaccine ( season) 2024 Meningococcal B Vaccine Aged Out No l onger eligible based on patient's age to complete this topic Meningococcal Vaccine Aged Out No brandon lawanda eligible based on patient's age to complete this topic RSV Immunizations Under 20 Months Aged Out No longer eligible based on patient's age to complete this topic Procedures Procedure Name Priority Date/Time Associated Diagnosis Comments OUTSIDE CYTOPATH CERV/VAG INTERPRET (PAP) (SCAN ORDER) 09/19/2019 MAMMOGRAM GENERIC (SCAN ORDER) 11/05/2018 OUTSIDE CYTOPATH CERV/VAG INTERPRET (PAP) 03/17/2017 from Last 3 Months or Most Recently Relevant to Health Maintenance Results * OUTSIDE CYTOPATH CERV/VAG INTERPRET (PAP) (09/19/2019) 09/19/2019 Narrative 09/19/2019 Ordered by an unspecified provider. us Documents Scanned SCANNING Final Result * MAMMOGRAM GENERIC (11/05/2018) Anatomical Region Laterality Modality Other 11/05/2018 Narrative 11/05/2018 Ordered by an unspecified provider. us Documents Scanned SCANNING Final Result * OUTSIDE CYTOPATH VAG/CERV PAP WITH HPV (03/17/2017) 03/17/2017 Narrative 03/17/2017 Ordered by an unspecified provider. us Documents Scanned SCANNING Final Result from Last 3 Months or Most Recently Relevant to Health Maintenance
--- OUTSIDE RECORDS SUMMARY | 2025-02-21 18:42 | XMS_ITS | Continuity of Care Document ---
Author Organization [facility] [place] Address [address] [facility] [address] [place] [address] Phone Care Team Providers Care Junior Account Manager Name Role Phone Carrillo Kenyon Unavailable Unavailable [...] Re-Ed Therapeutic Exercise PT Evaluation Moderate Complexity Neuromuscular Re-Ed Therapeutic Exercise Advance Directives Directive Yes / No Effective Date File Name No Information Encounters Encounter Description Practice Location Reason(s) For Visit Diagnoses Date Provider Providers Copied on Encounter [facility] [address], [id number], tel:[phone] [place] No Information 6 [address] [address] [facility], [facility] [address] [address], . tel: [phone] [facility] [address] [place] [address], [id number], tel:[phone] [place] No Information 3 Muehl Carrillo. [address] [place] [address], [facility] [address] [address], . tel: [phone] Referring Provider: Jessica Brown, [address] [place] [address] [place] [address], [address]. tel:[phone], [id number], tel:[phone] [place] No Information 2 Muehl Carrillo. [address] [place] [address], [facility] [address], [place], [facility], . tel: [phone] Referring Provider: Jessica Brown, [address] [place] [address] [place] [address], [address]. tel:[phone], [id number], tel:[phone] [place] No Information 0- 2 Muehl Carrillo. [address] [place] [address], [facility] [address] [address], . tel: [phone] Referring Provider: Jessica Brown, [address] [place] [address] [address], [address]. tel:[phone], [id number], tel:[phone] [place] No Information Dec-1 5-202 2 Muehl Carrillo. [address] [place] [address], [address], [place], [facility], . tel: [phone] Referring Provider: Jessica Brown, [address] [place] [address] [address], [place], [address]. tel:[phone], [id number], tel:[phone] [place] No Information Dec-1 3-202 2 Muehl Carrillo. [address] [place] [address], [facility] [address], [place], [facility], . tel: [phone] Referring Provider: Jessica Brown, [address] [place] [address] [address], [address]. tel:[phone], [id number], tel:[phone] [place] No Information Dec-0 8-202 2 Muehl Carrillo. [address] [place] [address], [address], [place], [facility], . tel: [phone] Referring Provider: Jessica Brown, [address] [place] [address] [address], [address]. tel:[phone], [id number], tel:[phone] [place] No Information Dec-0 6-202 2 Muehl Carrillo. [address] [place] [address], [address], [place], [facility], . tel: [phone] Referring Provider: Jessica Brown, [address] [place] [address] [address], [address]. tel:[phone], [id number], tel:[phone] [place] No Information 2 Muehl Carrillo. [address] [place] [address], [facility] [address], [place], [facility], . tel: [phone] Referring Provider: Jessica Brown, [address] [place] [address] [address], [address]. tel:[phone], [id number], tel:[phone] [place] No Information 2 Muehl Carrillo. [address] [place] [address], [facility] [address], [place], [facility], . tel: [phone] Referring Provider: Jessica Brown, [address] [place] [address] [place] [address], [address]. tel:[phone], [id number], tel:[phone] [place] No Information 2 Muehl Carrillo. [address] [place] [address], [address], [place], [facility], . tel: [phone] Referring Provider: Jessica Brown, [address] [place] [address] [address], [address]. tel:[phone], [id number], tel:[phone] [place] No Information 2 Muehl Carrillo. [address] [place] [address], [address], [place], [facility], . tel: [phone] Referring Provider: Jessica Brown, [address] [place] [address] [address], [address]. tel:[phone] Family History Family Member Type Diagnosis Age At Onset No Information Payers Payer name Insurance type Covered republican ID Authoramor lopez(s) [facility] [id number] Social History Type Description Quantity Date Captured [...]
--- NOTE | 2025-02-21 18:44 | ED.EAR ---
HPI - Ear Problem General Chief complaint: Ear Stated complaint: Lt ear swollen closed - check both Time Seen by Provider: 02/21/25 18:52 Source: patient and RN notes reviewed Mode of arrival: ambulatory Limitations: no limitations History of Present Illness HPI Narrative: 54-year-old female concern ear pain she reports she chronically itchy ears and she scratch that itis finger. Reports [place]. Reports she has developed swelling and pain with drainage to left ear today MD Complaint: ear pain Related Data Home Medications ?Medication ?Instructions ?Recorded ?Confirmed ?Last Taken ?Type albuterol sulfate 90 mcg/actuation 2 puff inhalation PRN PRN 09/01/22 09/01/22 Unknown History aerosol inhaler Shortness Of Breath alprazolam 0.5 mg tablet 0.5 mg PO DAILY 09/01/22 09/01/22 Unknown History bupropion HCl 300 mg 24 hr tablet, 300 mg PO DAILY 09/01/22 09/01/22 Unknown History extended release buspirone 30 mg tablet 30 mg PO DAILY 09/01/22 09/01/22 Unknown History montelukast 10 mg tablet 10 mg PO DAILY 09/01/22 09/01/22 Unknown History olmesartan 20 mg tablet 20 mg PO DAILY 09/01/22 09/01/22 Unknown History simvastatin 10 mg tablet 10 mg PO DAILY 09/01/22 09/01/22 Unknown History sumatriptan succinate 100 mg tablet 100 mg PO DAILY 09/01/22 09/01/22 Unknown History Allergies Allergy/AdvReac Type Severity Reaction Status Date / Time No Known Allergies Allergy Unknown Verified 02/21/25 18:47 Review of Systems Review of Systems: CONSTITUTIONAL: Denies malaise, chills, sweats, or fever. EYES: Denies visual changes, redness, or discharge. ENT: Denies problematic rhinorrhea, congestion, sinus pain, and sore throat. Reports left ear pain and drainage CARDIOVASCULAR: Denies chest pain, palpitations, or edema. RESPIRATORY: Denies cough. Denies dyspnea. GASTROINTESTINAL: Denies abdominal pain, nausea, vomiting, diarrhea SKIN: Denies rash or itching. MUSCULOSKELETAL: Denies myalgia. NEUROLOGIC: Denies headache. All systems reviewed & are unremarkable except as noted in HPI and below PMFSH Past Medical History Medical History (Updated 02/21/25 @ 18:57 by Laya Mathew NP) No significant past medical history Comments At time of signature, agree with nursing past medical, surgical, social and family history. There is no relevant family history pertinent to the presenting complaint Exam Narrative: GENERAL: Well-appearing, well-nourished, and in no acute distress. HEAD: Normocephalic EYES: PERRLA, conjunctivae clear ENT: Nares clear. Mucous membranes moist. TM pearly barlow with dull light reflex on the right, TM not fully visible on the left due to EAC swelling; left tragal tenderness, EAC erythematous and edematous with drainage noted. No post or pre-auricular erythema, induration, or warmth noted. Oropharynx not erythematous without lesions. Tonsils not enlarged and without exudate, no drooling, no hoarseness, no trismus, uvula midline. NECK: Supple. No lymphadenopathy CHEST: Clear to auscultation, breath sounds equal. No wheezing, rhonchi, rales, or [place]. No respiratory distress, speaks in full sentences. HEART: Regular rate and rhythm. No murmur heard. SKIN: Warm, dry, no rash. NEURO: Alert and oriented x3. PSYCH: Normal mood and affect Course Course Emergency Course: Patient is aware of diagnosis, understands and agrees to treatment plan. Anticipatory guidance given. Patient agrees to follow-up as directed and is aware of reasons to seek care at the emergency department. Portions of this record may have been created with voice recognition software Level of Care: Express Care Visit Vital Signs Vital signs: Reviewed. Medical Decision Making MDM Narrative Medical decision making narrative: I evaluated this in the [facility] care. History is obtained from patient who is an independent historian and physical exam was performed.? Available medical records were reviewed. ? Exam findings and relevant testing show no acute concerns or changes; patient is non-toxic appearing and is in no distress. Differential diagnosis considered: Felipe virus, strep pharyngitis, allergic rhinitis, upper respiratory tract infection, sinusitis, rhinosinusitis, nasopharyngitis. viral pharyngitis, otitis media, otitis externa, otitis effusion, pre/post auricular cellulitis, mastoiditis, cerumen impaction, foreign body. Exam findings show no acute concerns or changes; patient is non-toxic appearing and is in no distress. Patient is appropriate for outpatient treatment and follow-up. ? Differential diagnosis and treatment plan were discussed with the patient. Patient agrees with discussion and after shared medical decision making agrees with plan of care. All questions were answered to the patient's satisfaction. Patient is appropriate for outpatient treatment and follow-up. Critical Care Time Critical Care Time Critical Care Time: No Discharge Plan Discharge Clinical Impression: Otitis externa Patient Disposition: Home Condition: Stable Instructions: How to Use Ear Drops (ED) Additional Instructions: 1) Please follow-up with your primary care doctor in the next 2-3 days. 2) If you have any worsening of symptoms or any other urgent concerns please go to the ER. 3) Please take medications as prescribed and alternate Tylenol and ibuprofen as needed for pain. 4) Please read and follow information included in discharge instructions. Patient Language: Turkish Prescriptions: New [id number]-TK 3.5-10,000-1 mg/mL-unit/mL-% drops,suspension 4 drop LEFT EAR Q8H 7 Days Qty: 10 0RF No Action sumatriptan succinate 100 mg tablet 100 mg PO DAILY simvastatin 10 mg tablet 10 mg PO DAILY alprazolam 0.5 mg tablet 0.5 mg PO DAILY buspirone 30 mg tablet 30 mg PO DAILY montelukast 10 mg tablet 10 mg PO DAILY albuterol sulfate 90 mcg/actuation HFA aerosol inhaler 2 puff INHALATION PRN PRN (Reason: Shortness Of Breath) olmesartan 20 mg tablet 20 mg PO DAILY bupropion HCl 300 mg tablet extended release 24 hr 300 mg PO DAILY Follow-up/Referrals: Cheryl,MD Jessica [Primary Care Provider] - Time of Disposition: 18:57
[2025-02-21 18:47] VITALS: BP 192/107; PULSE 105; RESP 18; TEMP 36.5; O2SAT 100
[2025-02-21 19:01] VITALS: BP 161/91; PULSE 84
== END 2025-02-21 19:01 | disposition home or self-care (01) ==
PROVIDERS: Emergency Provider Nurse Practitioner; PCP Family Medicine
DX: H60.92 Unspecified otitis externa, left ear (principal)
CPT/HCPCS: 99213; G0463